=== PATIENT | female | born 1980 | race Caucasian/White ===

== ENCOUNTER 2017-02-04 00:17 | Outpatient (CLI) ==
[2017-02-03 21:46] VITALS: BMI 24.5
== END 2017-02-04 00:18 | disposition home or self-care (01) ==
LOC: AMBL 00:17
PROVIDERS: ATTEND Family Medicine
DX: N20.0 Calculus of kidney (principal)

== ENCOUNTER 2017-09-23 18:33 | Emergency (ER) ==
[2017-09-23 18:42] VITALS: BP 108/74; TEMP 98.1; BMI 25.8
--- NOTE | 2017-09-23 19:14 | CT ---
Exam: CT of the abdomen and pelvis without contrast History: Flank pain Technique: [address] of the abdomen and pelvis without intravascular contrast FINDINGS: The lung bases are clear. No significant liver abnormality. The adrenals, pancreas and spl een are unremarkable. The stomach and hiatus are unremarkable.The gallbladder appears normal. Nonobst ructing 4.3 mm calculus in the right kidney. Nonobstructing 2 mm calculus in the left kidney. No hy dronephrosis or hydroureter on either side. The appendix is not seen. Bowel loops demonstrate normal caliber. No inflamatory change seen in the mesentery or retroperitoneum. Vascular structures appear normal by noncontrast CT. Pelvic genitourinary structures appear normal. Pelvic bowel loops are unremarkable. No inflammatory c hange in the pelvic fat. No acute abnormality of the abdominal or pelvic skeleton. Impression: 1. No inflammatory process, bowel or urinary obstruction is seen. 2. Bilateral nonobstructing nephrolithiasis
--- NOTE | 2017-09-23 19:20 | ED.PDOC ---
General ED Provider: Dr. YULIANA ROSENBERG-ER Chief Complaint: Back Pain Stated Complaint: simba got stones Time Seen by Physician: 18:55 Mode of Arrival: Walk-In Information Source: Patient Exam Limitations: No limitations Primary Care Provider: YULIANA ROSENBERG Nursing and Triage Documentation Reviewed and Agree: Yes Reviewed sepsis parameters & appropriate labs ordered?: Yes System Inflammatory Response Syndrome: Not Applicable Sepsis Protocol: For patient's 13 years and over: Temp is 96.8 and below OR 101 and greater Pulse >90 BPM Resp >20/minute Acutely Altered Mental Status Are patient's symptoms suggestive of a new infection, such as: -Pneumonia -Skin, Soft Tissue -Endocarditis -UTI -Bone, Joint Infection -Implantable Device -Acute Abdominal Infection -Wound Infection -Meningitis -Blood Stream Catheter Infection -Unknown Complaint Exam - Complaint/Exam Patient Complains of: Reports: Pain Symptoms Are: Still present Timing: Constant Initial Severity: Mild Current Severity: Moderate Location of Pain: Reports: Flank Character: Reports: Dull, Cramping Aggravating: Reports: None Alleviating: Reports: None Associated Signs and Symptoms: Reports: Back pain, Hematuria Ectopic Risk Factors: Reports: Tubal ligation Differential Diagnoses: Other Review of Systems - Review Of Systems Constitutional: Reports: No symptoms Eyes: Reports: No symptoms Ears, Nose, Mouth, Throat: Reports: No symptoms Respiratory: Reports: No symptoms Cardiac: Reports: No symptoms GI: Reports: No symptoms : Reports: Flank pain, Hematuria Musculoskeletal: Reports: No symptoms Skin: Reports: No symptoms Neurological: Reports: No symptoms Endocrine: Reports: No symptoms Hematologic/Lymphatic: Reports: No symptoms All Other Systems: Reviewed and Negative Past Medical History - Past Medical History Previously Healthy: Yes Endocrine: Reports: None Cardiovascular: Reports: None Respiratory: Reports: None Hematological: Reports: None Gastrointestinal: Reports: None Genitourinary: Reports: UTI, Kidney stones Neuro/Psych: Reports: None Musculoskeletal: Reports: None Cancer: Reports: None Last Menstrual Period: na - Surgical History General Surgical History: Reports: Unknown - Family History Family History: Reports: Unknown - Social History Smoking Status: Current every day smoker Hx Substance Use: No Alcohol Screening: None - Immunizations Tetanus Shot up to Date: Yes Physical Exam - Physical Exam Appearance: Well-appearing, No pain distress, Well-nourished Pain Distress: Mild Eyes: KOBE, EOMI, Conjunctiva clear ENT: Ears normal, Nose normal, Oropharynx normal Neck: Supple Respiratory: Airway patent Cardiovascular: RRR, Pulses normal, No rub, No murmur GI/: Soft, Nontender, No masses, Bowel sounds normal, No Organomegaly Musculoskeletal: Normal strength, ROM intact, No edema, No calf tenderness Skin: Warm, Dry, Normal color Neurological: Sensation intact Psychiatric: Affect appropriate, Mood appropriate Interpretation - Radiology Interpretation Radiology Interpretation By: Radiologist Radiology Results: Positive Exam Interpreted: CT Scan Critical Care Note - Critical Care Note Total Time (mins): 0 Course - Course Orders, Labs, Meds: Lab Review 09/23/17 18:53 Urine Color Yellow Urine Clarity Clear Urine pH 7.0 Ur Specific [place] 1.020 Urine Protein Negative Urine Glucose (UA) Negative Urine Ketones Negative Urine Blood Negative Urine Nitrite Negative Urine Bilirubin Negative Urine Urobilinogen 0.2 Ur Leukocyte Esterase Negative Orders Category Date Time Status URINALYSIS C & S IF INDICATED Stat LAB 09/23/17 18:53 Completed URINE CULTURE Stat LAB 09/23/17 18:[address] ABDOMEN/PELVIS WO CONTRAST Stat RADS 09/23/17 18:38 Completed Vital Signs: Temp Pulse Resp BP Pulse Ox 09/23/17 18:34 98.1 F 98 H 16 108/74 98 Departure - Departure Time of Disposition: 19:19 Disposition: HOME SELF-CARE Discharge Problem: Flank pain Hematuria Qualifiers: Hematuria type: gross Qualified Code(s): R31.0 - Gross hematuria Instructions: Kidney Stones (ED) Condition: Good Pt referred to PMD for follow-up: Yes IPMP verified?: No Additional Instructions: percocet 5mg q 4hrs prn pain #12--cakll my office tomorrow to arrange urology referral Allergies/Adverse Reactions: Allergies No Known Allergies Allergy (Unverified 09/23/17 18:47) Home Medications: Ambulatory Orders 1 [No Reported Medications] 02/03/17 Disposition Discussed With: Patient
== END 2017-09-23 19:24 | disposition home or self-care (01) ==
LOC: ED 18:33
DX: N20.0 Calculus of kidney (principal); R31.0 Gross hematuria; Z87.442 Personal history of urinary calculi; F17.210 Nicotine dependence, cigarettes, uncomplicated
CPT/HCPCS: 81001; 87086; 87186; 99283

== ENCOUNTER 2018-09-29 10:53 | Emergency (ER) ==
[2018-09-29 10:59] VITALS: BP 111/70; TEMP 97.9; BMI 24.7
[2018-09-29] MEDS ORDERED: MORPHINE 4 MG/ML SYRINGE IM STA (11:11)
[2018-09-29] MEDS ORDERED: TORADOL IM STA (11:11)
[2018-09-29] MEDS ORDERED: ZOFRAN 4 MG/2 ML IM STA (11:11)
[2018-09-29 11:24] LABS: URINE PREGNANCY TEST NEGATIVE (NEGATIVE)
[2018-09-29] MEDS ORDERED: ZOFRAN 4 MG/2 ML ONE (11:26)
--- NOTE | 2018-09-29 12:44 | CT ---
EXAM: CT ABDOMEN AND PELVIS HISTORY: Right flank pain TECHNIQUE: CT abdomen and pelvis without intravenous contrast. Images were reconstructed using 3 mm section thickness. Reformations were prepared. COMPARISON: 09/23/2017 FINDINGS: There is bilateral nephrolithiasis with one or two punctate stones bilaterally although largest on th e right at 5 mm. No hydronephrosis is identified. There is no perinephric fat stranding. Ureters a re difficult to follow although do not appear dilated and there is no convincing evidence of intralum inal calculus. Urinary bladder is grossly unremarkable. Within limits of this unenhanced exam, the liver and spleen reveal no focal lesions. Gallbladder is grossly unremarkable. Pancreas and adrenal glands are grossly unremarkable. Normal abdominal aorta. Normal stomach. An appendix, if present is not seen. Normal bowel gas pattern. Uterus is within normal limits. There is no ascites or inflammatory infiltration of the abdominal fat. Lung bases ar e clear. No free air. No acute bony finding. IMPRESSION: Bilateral nephrolithiasis. No hydronephrosis or convincing evidence of ureteral obstruc tion. No clear etiology for the patient's right flank pain was found.
--- NOTE | 2018-09-29 13:09 | ED.PDOC ---
General ED Provider: Dr. REILLY RODRIGES Chief Complaint: Kidney Stone Stated Complaint: kidney stone Time Seen by Physician: 11:00 Mode of Arrival: Walk-In Information Source: Patient Exam Limitations: No limitations Nursing and Triage Documentation Reviewed and Agree: Yes Does patient meet sepsis criteria?: No System Inflammatory Response Syndrome: Not Applicable Sepsis Protocol: For patient's 13 years and over: Temp is 96.8 and below OR 101 and greater Pulse >90 BPM Resp >20/minute Acutely Altered Mental Status Are patient's symptoms suggestive of a new infection, such as: -Pneumonia -Skin, Soft Tissue -Endocarditis -UTI -Bone, Joint Infection -Implantable Device -Acute Abdominal Infection -Wound Infection -Meningitis -Blood Stream Catheter Infection -Unknown Review of Systems - Review Of Systems Constitutional: Reports: No symptoms Eyes: Reports: No symptoms Ears, Nose, Mouth, Throat: Reports: No symptoms Respiratory: Reports: No symptoms Cardiac: Reports: No symptoms GI: Reports: Abdominal pain : Reports: No symptoms Musculoskeletal: Reports: No symptoms Skin: Reports: No symptoms Neurological: Reports: No symptoms Endocrine: Reports: No symptoms Hematologic/Lymphatic: Reports: No symptoms All Other Systems: Reviewed and Negative Past Medical History - Past Medical History Previously Healthy: Yes Endocrine: Reports: None Cardiovascular: Reports: None Respiratory: Reports: None Hematological: Reports: None Gastrointestinal: Reports: None Genitourinary: Reports: UTI, Kidney stones Neuro/Psych: Reports: None Musculoskeletal: Reports: None Cancer: Reports: None Last Menstrual Period: 11 of September - Surgical History General Surgical History: Reports: Unknown - Family History Family History: Reports: Unknown - Social History Smoking Status: Current every day smoker Hx Substance Use: No Alcohol Screening: None Physical Exam - Physical Exam Appearance: Well-appearing, No pain distress, Well-nourished Eyes: KOBE, EOMI, Conjunctiva clear ENT: Ears normal, Nose normal, Oropharynx normal Respiratory: Airway patent, Breath sounds clear, Breath sounds equal, Respirations nonlabored Cardiovascular: RRR, Pulses normal, No rub, No murmur GI/: Soft, Nontender, No masses, Bowel sounds normal, No Organomegaly Musculoskeletal: Normal strength, ROM intact, No edema, No calf tenderness Skin: Warm, Dry, Normal color Neurological: Sensation intact, Motor intact, Reflexes intact, Cranial nerves intact, Alert, Oriented Psychiatric: Affect appropriate, Mood appropriate Critical Care Note - Critical Care Note Total Time (mins): 0 Course - Course Hematology/Chemistry: 09/29/18 11:15 09/29/18 11:15 Orders, Labs, Meds: Lab Review 09/29/18 09/29/18 09/29/18 11:10 11:10 11:15 WBC 8.16 RBC 4.49 Hgb 13.0 Hct 39.2 MCV 87.3 MCH 29.0 MCHC 33.2 RDW Coeff of Bill 13.7 Plt Count 278 Immature Gran % (Auto) 0.2 Neut % (Auto) 62.1 Lymph % (Auto) 26.2 [place] % (Auto) 7.0 Eos % (Auto) 3.6 Baso % (Auto) 0.9 Immature Gran # (Auto) 0.0 Neut # (Auto) 5.1 Lymph # (Auto) 2.1 [place] # (Auto) 0.6 Eos # (Auto) 0.3 Baso # (Auto) 0.1 Sodium Potassium Chloride Carbon Dioxide Anion Gap BUN Creatinine Estimated GFR (MDRD) BUN/Creatinine Ratio Glucose Calcium Total Bilirubin AST ALT Alkaline Phosphatase Total Protein Albumin Globulin Albumin/Globulin Ratio Urine Color Yellow Urine Clarity Clear Urine pH 7.0 Ur Specific [place] 1.010 Urine Protein Negative Urine Glucose (UA) Negative Urine Ketones Negative Urine Blood Trace-intact Urine Nitrite Negative Urine Bilirubin Negative Urine Urobilinogen 0.2 Ur Leukocyte Esterase Trace Urine Microscopic RBC 2-5 Urine Microscopic WBC 0-2 Ur Squamous Epith Cells Not present Urine Test Negative 09/29/18 11:15 WBC RBC Hgb Hct MCV MCH MCHC RDW Coeff of Bill Plt Count Immature Gran % (Auto) Neut % (Auto) Lymph % (Auto) [place] % (Auto) Eos % (Auto) Baso % (Auto) Immature Gran # (Auto) Neut # (Auto) Lymph # (Auto) [place] # (Auto) Eos # (Auto) Baso # (Auto) Sodium 140.2 Potassium 4.32 Chloride 105.1 Carbon Dioxide 26.4 Anion Gap 13.02 BUN 12.5 Creatinine 0.64 Estimated GFR (MDRD) 104.00 BUN/Creatinine Ratio 19.53 Glucose 95.6 Calcium 9.23 Total Bilirubin 0.24 AST 28.2 ALT 22.7 Alkaline Phosphatase 49.5 Total Protein 7.06 Albumin 4.25 Globulin 2.81 Albumin/Globulin Ratio 1.51 Urine Color Urine Clarity Urine pH Ur Specific [place] Urine Protein Urine Glucose (UA) Urine Ketones Urine Blood Urine Nitrite Urine Bilirubin Urine Urobilinogen Ur Leukocyte Esterase Urine Microscopic RBC Urine Microscopic WBC Ur Squamous Epith Cells Urine Test Orders Category Date Time Status CBC W/ AUTO DIFF Stat LAB 09/29/18 11:15 Completed COMPREHENSIVE METABOLIC PANEL Stat LAB 09/29/18 11:15 Completed URINALYSIS C & S IF INDICATED Stat LAB 09/29/18 11:10 Completed URINE Stat LAB 09/29/18 11:10 Completed Ketorolac Tromethamine [Toradol] MEDS 09/29/18 11:11 Discontinued 30 mg IM ONCE STA Morphine Sulfate [Morphine 4 mg/ml Syringe] MEDS 09/29/18 11:11 Discontinued 4 mg IM ONCE STA Ondansetron HCl/Pf [Zofran 4 mg/2 ml] MEDS 09/29/18 11:26 Discontinued 4 mg .ROUTE .STK-MED ONE Ondansetron HCl/Pf [Zofran 4 mg/2 ml] MEDS 09/29/18 11:11 Discontinued 4 mg IM ONCE STA CT ABD/PEL WO RENAL STONE PROT Stat RADS 09/29/18 11:11 Completed Medications Discontinued Medications Generic Name Dose Route Start Last Admin Trade Name Freq PRN Reason Stop Dose Admin Ketorolac Tromethamine 30 mg 09/29/18 11:11 09/29/18 11:28 Toradol IM 09/29/18 11:12 30 mg ONCE STA Administration Morphine Sulfate 4 mg 09/29/18 11:11 09/29/18 11:28 Morphine 4 Mg/Ml Syringe IM 09/29/18 11:12 4 mg ONCE STA Administration Ondansetron HCl 4 mg 09/29/18 11:11 09/29/18 11:29 Zofran 4 Mg/2 Ml IM 09/29/18 11:12 4 mg ONCE STA Administration Vital Signs: Temp Pulse Resp BP Pulse Ox 09/29/18 10:55 97.9 F 100 H 16 111/70 99 Departure - Departure Time of Disposition: 13:08 Disposition: HOME SELF-CARE Discharge Problem: Kidney stone Instructions: Renal Colic (ED) Condition: Good Pt referred to PMD for follow-up: Yes IPMP verified?: No Additional Instructions: Please call your Family Physician as soon as possible to schedule a follow-up appointment. Allergies/Adverse Reactions: Allergies No Known Allergies Allergy (Unverified 09/29/18 11:01) Home Medications: Ambulatory Orders 1 [No Reported Medications] 02/03/17 Disposition Discussed With: Patient
== END 2018-09-29 13:21 | disposition home or self-care (01) ==
LOC: ED 10:53
DX: N20.0 Calculus of kidney (principal); Z87.442 Personal history of urinary calculi; Z87.440 Personal history of urinary (tract) infections; F17.210 Nicotine dependence, cigarettes, uncomplicated
CPT/HCPCS: 36415; 80053; 81001; 81025; 85025; 96372; 99283

== ENCOUNTER 2018-12-06 09:34 | Inpatient (IN) ==
[2018-12-06] MEDS ORDERED: TYLENOL PO STA (10:04)
[2018-12-06 10:19] LABS: URINE PREGNANCY TEST NEGATIVE (NEGATIVE)
--- NOTE | 2018-12-06 11:17 | CT ---
EXAM: CT Abdomen Pelvis Without IV contrast HISTORY: Pain COMPARISON: 11/06/2018 TECHNIQUE: CT Abdomen Pelvis performed Without intravenous contrast. Coronal and sagital images obta ined. FINDINGS: Minimal passive atelectasis in the dependent lung bases. Normal heart size. Similar right inferior pole 2 x 3 mm nonobstructive calculus and nonobstructive left inferior pole 2 mL calculus. No other urolithiasis. No hydronephrosis or perinephric fat stranding. The The liver, gallbladder, pancreas, spleen, and adrenals are unremarkable. No bowel obstruction or abnormal bowel wall thickening. Metallic surgical clips in the presacral sof t tissues, previously in the right paramedian pelvis. No evidence of appendicitis. The tip is not w ell visualized. No adenopathy. Uterus and adnexa are within normal limits. Trace hypodense physiolog ic free fluid within the pelvis. Normal diameter aorta. No abnormal fluid collection, free fluid or free air. No acute osseous abnor mality. IMPRESSION: 1. Similar nonobstructive bilateral renal calculi. No acute intra-abdominal findings. 2. Surgical clips in the presacral soft tissues, previous in the left paramedian abdomen. Recommend correlation with surgical history. 3. Moderate retained colon stool volume.
--- NOTE | 2018-12-06 11:30 | ED.PDOC ---
General ED Provider: Dr. REILLY RODRIGES Chief Complaint: Urinary Problem Stated Complaint: DYSURIA Time Seen by Physician: 09:40 Mode of Arrival: Walk-In Information Source: Patient Exam Limitations: No limitations Primary Care Provider: ARTI MAGALLON Nursing and Triage Documentation Reviewed and Agree: Yes Does patient meet sepsis criteria?: No If yes, has appropriate treatment been initiated?: No System Inflammatory Response Syndrome: Not Applicable Sepsis Protocol: For patient's 13 years and over: Temp is 96.8 and below OR 101 and greater Pulse >90 BPM Resp >20/minute Acutely Altered Mental Status Are patient's symptoms suggestive of a new infection, such as: -Pneumonia -Skin, Soft Tissue -Endocarditis -UTI -Bone, Joint Infection -Implantable Device -Acute Abdominal Infection -Wound Infection -Meningitis -Blood Stream Catheter Infection -Unknown Complaint Exam - UTI Female Complaint/Exam Patient Complains of: Reports: Painful urination Onset/Duration: 2 DAYS Symptoms Are: Still present Timing: Intermittent Initial Severity: Mild Current Severity: Mild Location of Pain: Reports: Suprapubic Associated Signs and Symptoms: Reports: Fever, Chills. Denies: Flank pain, Dyspareunia, Vaginal discharge Patient Rh Status: Unknown Related History: Reports: Similar episode Related Surgical History: Reports: None CVA Tenderness: No Suprapubic Tenderness: No Differential Diagnoses: Pyelonephritis, Other (UTI ( RECURRENT UTI AND NEED FOR UROLOGY EVALUATION DISCUSSED ) Review of Systems - Review Of Systems Constitutional: Reports: Chills, Fever, Malaise, Weakness, Loss of appetite Eyes: Reports: No symptoms Ears, Nose, Mouth, Throat: Reports: No symptoms Respiratory: Reports: No symptoms Cardiac: Reports: No symptoms GI: Reports: No symptoms : Reports: Dysuria, Frequency Musculoskeletal: Reports: No symptoms Skin: Reports: No symptoms Neurological: Reports: No symptoms Endocrine: Reports: No symptoms Hematologic/Lymphatic: Reports: No symptoms All Other Systems: Reviewed and Negative Past Medical History - Past Medical History Previously Healthy: Yes Endocrine: Reports: None Cardiovascular: Reports: None Respiratory: Reports: None Hematological: Reports: None Gastrointestinal: Reports: None Genitourinary: Reports: UTI, Kidney stones Neuro/Psych: Reports: None Musculoskeletal: Reports: None Cancer: Reports: None Last Menstrual Period: N/A - Surgical History General Surgical History: Reports: Unknown - Family History Family History: Reports: Unknown - Social History Smoking Status: Current every day smoker, Heavy tobacco smoker Hx Substance Use: No Alcohol Screening: None - Immunizations Tetanus Shot up to Date: Yes Physical Exam - Physical Exam Appearance: Ill-appearing Ill-appearing: Mild Pain Distress: Mild Eyes: KOBE, EOMI, Conjunctiva clear ENT: Ears normal, Nose normal, Oropharynx normal Respiratory: Airway patent, Breath sounds clear, Breath sounds equal, Respirations nonlabored Cardiovascular: RRR, Pulses normal, No rub, No murmur GI/: Soft, Nontender, No masses, Bowel sounds normal, No Organomegaly Musculoskeletal: Normal strength, ROM intact, No edema, No calf tenderness Skin: Warm, Dry, Normal color Neurological: Sensation intact, Motor intact, Reflexes intact, Cranial nerves intact, Alert, Oriented Psychiatric: Affect appropriate, Mood appropriate Interpretation - Radiology Interpretation Radiology Interpretation By: Radiologist Radiology Results: Positive (NONE OBSTRUCTING STONES) Physician Notification - Case Discussed Physician Notified: PENALOZA Time of Notification: 11:33 (ADMITT START OUT ON DUAL ANTIBIOTICS AZACTAM AND ONE MORE ) Admit/Transition Orders Entered by ED Provider: Yes Admit To: Inpatient Critical Care Note - Critical Care Note Total Time (mins): 0 Course - Course Hematology/Chemistry: 12/06/18 09:58 12/06/18 09:58 Orders, Labs, Meds: Lab Review 12/06/18 12/06/18 12/06/18 09:58 09:58 10:06 WBC 14.40 H RBC 4.22 Hgb 12.2 Hct 37.4 MCV 88.6 MCH 28.9 MCHC 32.6 RDW Coeff of Bill 14.5 Plt Count 209 Immature Gran % (Auto) 0.3 Neut % (Auto) 80.0 Lymph % (Auto) 8.2 L [place] % (Auto) 9.7 Eos % (Auto) 1.5 Baso % (Auto) 0.3 Immature Gran # (Auto) 0.0 Neut # (Auto) 11.5 H Lymph # (Auto) 1.2 [place] # (Auto) 1.4 Eos # (Auto) 0.2 Baso # (Auto) 0.1 Sodium 135.6 Potassium 3.91 Chloride 101.8 Carbon Dioxide 29.1 Anion Gap 8.61 BUN 8.7 Creatinine 0.56 L Estimated GFR (MDRD) 121.00 BUN/Creatinine Ratio 15.53 Glucose 114.4 H Calcium 8.66 Total Bilirubin 0.32 AST 34.3 ALT 25.4 Alkaline Phosphatase 54.5 Total Protein 6.82 Albumin 3.88 Globulin 2.94 Albumin/Globulin Ratio 1.31 Urine Color Yellow Urine Clarity Slightly Urine pH 7.0 Ur Specific [place] 1.020 Urine Protein 1+ Urine Glucose (UA) Negative Urine Ketones Negative Urine Blood 1+ Urine Nitrite Positive Urine Bilirubin Negative Urine Urobilinogen 0.2 Ur Leukocyte Esterase 2+ Urine Microscopic RBC 2-5 Urine Microscopic WBC 30-50 Ur Squamous Epith Cells Not present Urine Bacteria 1+ Urine Test 12/06/18 10:06 WBC RBC Hgb Hct MCV MCH MCHC RDW Coeff of Bill Plt Count Immature Gran % (Auto) Neut % (Auto) Lymph % (Auto) [place] % (Auto) Eos % (Auto) Baso % (Auto) Immature Gran # (Auto) Neut # (Auto) Lymph # (Auto) [place] # (Auto) Eos # (Auto) Baso # (Auto) Sodium Potassium Chloride Carbon Dioxide Anion Gap BUN Creatinine Estimated GFR (MDRD) BUN/Creatinine Ratio Glucose Calcium Total Bilirubin AST ALT Alkaline Phosphatase Total Protein Albumin Globulin Albumin/Globulin Ratio Urine Color Urine Clarity Urine pH Ur Specific [place] Urine Protein Urine Glucose (UA) Urine Ketones Urine Blood Urine Nitrite Urine Bilirubin Urine Urobilinogen Ur Leukocyte Esterase Urine Microscopic RBC Urine Microscopic WBC Ur Squamous Epith Cells Urine Bacteria Urine Test Negative Orders Category Date Time Status CBC W/ AUTO DIFF Stat LAB 12/06/18 09:58 Completed COMPREHENSIVE METABOLIC PANEL Stat LAB 12/06/18 09:58 Completed MISCELLANEOUS SEND OUT Routine LAB 12/06/18 10:06 Stop Req URINALYSIS C & S IF INDICATED Stat LAB 12/06/18 10:06 Completed URINE CULTURE Stat LAB 12/06/18 10:06 Received URINE Stat LAB 12/06/18 10:06 Completed Acetaminophen [Tylenol] MEDS 12/06/18 10:04 Discontinued 650 mg PO ONCE STA CT ABD/PEL WO RENAL STONE PROT Stat RADS 12/06/18 10:33 Completed Medications Discontinued Medications Generic Name Dose Route Start Last Admin Trade Name Freq PRN Reason Stop Dose Admin Acetaminophen 650 mg 12/06/18 10:04 12/06/18 10:12 Tylenol PO 12/06/18 10:05 650 mg ONCE STA Administration Vital Signs: Temp Pulse Resp BP Pulse Ox 12/06/18 09:34 100.6 F H 104 H 18 118/67 97 Departure - Departure Time of Disposition: 11:33 Disposition: ADMITTED INPATIENT Discharge Problem: Urinary tract infectious disease, Urinary symptoms Condition: Good Pt referred to PMD for follow-up: Yes IPMP verified?: No Allergies/Adverse Reactions: Allergies No Known Allergies Allergy (Verified 12/06/18 09:46) Home Medications: Ambulatory Orders Buprenorphine HCl/Naloxone HCl [Suboxone 8 mg-2 mg Sl Film] 1 film SL DAILY 06/22 Disposition Discussed With: Patient
[2018-12-06] MEDS ORDERED: TYLENOL PO PRN (11:35)
[2018-12-06] MEDS ORDERED: ROCEPHIN 1 GM/50 ML D5W 50 ML IV ONE (11:57)
[2018-12-06] MEDS ORDERED: AZACTAM 1 GM in SODIUM CHLORIDE 100 ML IV SCH (12:00)
[2018-12-06] MEDS ORDERED: SODIUM CHLORIDE IV SCH (12:00)
[2018-12-06] MEDS: ROCEPHIN 1 GM/50 ML D5W 1 GM in PREMIX 50 ML D5W 1 BAG IV SCH (12:03)
[2018-12-06] MEDS ORDERED: SODIUM CHLORIDE 1,000 ML IV ONE (12:10)
[2018-12-06] MEDS ORDERED: TORADOL ONE (12:23)
[2018-12-06] MEDS: TORADOL IVP PRN ×2 (12:26→20:50)
[2018-12-06 12:48] VITALS: BMI 25.7
[2018-12-06] MEDS ORDERED: AZACTAM ONE ×2 (12:56→20:28)
[2018-12-06] MEDS: AZACTAM 1 GM in SODIUM CHLORIDE 50 ML IV SCH ×2 (12:59→20:48)
[2018-12-07] MEDS: SODIUM CHLORIDE 1,000 ML IV SCH ×2 (02:07→14:51)
[2018-12-07] MEDS: TORADOL IVP PRN ×3 (05:58→22:15)
[2018-12-07] MEDS ORDERED: TYLENOL PO PRN (08:05)
--- NOTE | 2018-12-07 08:19 | PCM.PROG ---
Attending Provider: [facility] patient is seen with Rosa Maria De Anda, Nurse Practitioner. DATE OF SERVICE: 12/07/18 SUBJECTIVE: This 38 year old WHITE/ F was hospitalized 12/06/18. The patient is running low grade fever this morning. She states that she is feeling nauseous. She has been out multiple times during the night to smoke. She is also complaining of flank pain. REVIEW OF SYSTEMS: CONSTITUTIONAL: No night sweats. Fatigue, No lethargy. Fever. HEENT: Eyes: No visual changes. No eye pain. No eye discharge. ENT: No runny nose. No epistaxis. No sinus pain. No odynophagia. No congestion. RESPIRATORY: No cough, no congestion. No hemoptysis. No shortness of breath. CARDIOVASCULAR: No angina symptoms. No CHF symptoms. No atypical chest pain for CAD. No palpitations. No orthopnea.. GASTROINTESTINAL: Flank pain. Nausea. No diarrhea or constipation. No hematemesis. No hematochezia. GENITOURINARY: No urgency. No frequency. No dysuria. No hematuria. No obstructive symptoms. No discharge. No pain. No significant abnormal bleeding. MUSCULOSKELETAL: No musculoskeletal pain; no joint swelling. NEUROLOGICAL: Awake, alert, oriented to time, place and person. No headache. No neck pain. No syncope. No seizures. No dizziness. PSYCHIATRIC: Not anxious. No depression. No suicidal thoughts. No homicidal thoughts. SKIN: No rash. No lesions. No wounds. ENDOCRINE: No unexplained weight loss. No weight gain. HEMATOLOGIC/LYMPHATIC: No anemia. No purpura. No petechiae. No prolonged or excessive bleeding. No palpable lymph nodes. PHYSICAL EXAMINATION: GENERAL: The patient is awake, alert and oriented, lying in bed in no distress. VITAL SIGNS: Temperature 99.2 F, Pulse 100, Respiratory Rate 16, BP 102/71, Pulse Ox 99% HEENT: Head normocephalic, atraumatic. Eyes: Extraocular muscles are intact. Pupils are equal, round and reactive to light and accommodation. Ears: No lesions. Nose appeared normal. Throat: No exudate or erythema. NECK: Supple. No JVD, no carotid bruit. No lymphadenopathy or thyromegaly. LUNGS: Diminished breath sounds. Clear to auscultation. Percussion note normal. Chest symmetrical. HEART: S1, S2, no S3. No murmurs. No cyanosis or clubbing. No ascites. Pulses: Dorsalis pedis and posterior tibial pulses +1 to +2 both sides. ABDOMEN: Soft. Non-tender. Bowel sounds active. No CVA tenderness. No mass felt. EXTREMITIES: No edema. Full range of motion of all extremities, equal. NEUROLOGIC: No focal deficit. Cranial nerves II through XII are grossly intact. No headache, no double vision or headache. SKIN: Not dry. Intact. Turgor-normal. LYMPHATIC: No palpable lymph nodes/no lymphedema. MUSCULOSKELETAL: Normal joints with no swelling. Muscle tone is normal. LAB REVIEW: 12/07/18 05:21 12/07/18 05:21 12/07/18 05:21: Sodium 135.7, Potassium 4.06, Chloride 105.5, Carbon Dioxide 26.7, Anion Gap 7.56, BUN 9.3, Creatinine 0.61, Estimated GFR (MDRD) 110.00, BUN /Creatinine Ratio 15.24, Glucose 150.7 H, Calcium 8.40, Total Bilirubin 0.88, AST 38.3 H, ALT 43.6 H, Alkaline Phosphatase 74.4, Total Protein 6.38, Albumin 3.52, Globulin 2.86, Albumin/Globulin Ratio 1.23 12/07/18 05:21: WBC 30.02 H D, RBC 3.90 L, Hgb 11.4 L, Hct 34.6 L, MCV 88.7, MCH 29.2, MCHC 32.9, RDW Coeff of Bill 14.6, Plt Count 190, Neutrophils % (Manual ) 88.0 H, Lymphocytes % (Manual) 4.0 L, Monocytes % (Manual) 7.0, Eosinophils % (Manual) 1.0, Anisocytosis Not present 12/06/18 12:00: Lactic Acid 0.79 12/06/18 11:37: Procalcitonin < 0.05 12/06/18 10:06: Urine Test Negative 12/06/18 10:06: Urine Color Yellow, Urine Clarity Slightly, Urine pH 7.0, Ur Specific [place] 1.020, Urine Protein 1+, Urine Glucose (UA) Negative, Urine Ketones Negative, Urine Blood 1+, Urine Nitrite Positive, Urine Bilirubin Negative, Urine Urobilinogen 0.2, Ur Leukocyte Esterase 2+, Urine Microscopic RBC 2-5, Urine Microscopic WBC 30-50, Ur Squamous Epith Cells Not present, Urine Bacteria 1+ 12/06/18 09:58: Sodium 135.6, Potassium 3.91, Chloride 101.8, Carbon Dioxide 29.1, Anion Gap 8.61, BUN 8.7, Creatinine 0.56 L, Estimated GFR (MDRD) 121.00, BUN/Creatinine Ratio 15.53, Glucose 114.4 H, Calcium 8.66, Total Bilirubin 0.32 , AST 34.3, ALT 25.4, Alkaline Phosphatase 54.5, Total Protein 6.82, Albumin 3.88, Globulin 2.94, Albumin/Globulin Ratio 1.31 12/06/18 09:58: WBC 14.40 H, RBC 4.22, Hgb 12.2, Hct 37.4, MCV 88.6, MCH 28.9, MCHC 32.6, RDW Coeff of Bill 14.5, Plt Count 209, Immature Gran % (Auto) 0.3, Neut % (Auto) 80.0, Lymph % (Auto) 8.2 L, [place] % (Auto) 9.7, Eos % (Auto) 1.5, Baso % (Auto) 0.3, Immature Gran # (Auto) 0.0, Neut # (Auto) 11.5 H, Lymph # ( Auto) 1.2, [place] # (Auto) 1.4, Eos # (Auto) 0.2, Baso # (Auto) 0.1 ASSESSMENT: Please see below. 1. Acute UTI 2. Acute dehydration 3. Smoker 4. History of drug abuse PLAN: 1. Zofran 4mg IV Q 6 hours PRN 2. Nicotine Patch Plan and coordination of the patient's care discussed in the presence of Russian History Professor and nurse. SCRIBED BY: TESS DYE, Supervisor [employer] scribed while in presence of service performed by Dr. Penaloza/Rosa Maria De Anda APRN on 12/07/18 ([id number])
[2018-12-07] MEDS: ZOFRAN 4 MG/2 ML IVP PRN ×2 (08:23→15:05)
[2018-12-07] MEDS: ROCEPHIN 1 GM/50 ML D5W 1 GM in PREMIX 50 ML D5W 1 BAG IV SCH (08:30)
[2018-12-07] MEDS ORDERED: NICODERM 21 MG TD SCH (09:00)
[2018-12-07] MEDS: AZACTAM 1 GM in SODIUM CHLORIDE 50 ML IV SCH ×2 (09:24→20:03)
[2018-12-07] MEDS: BUPRENORPHINE HCL SL SCH (09:29)
[2018-12-07] MEDS: [UNRECOGNIZED DRUG - OTHER] SL SCH (09:29)
[2018-12-07] MEDS: NALOXONE HCL SL SCH (09:29)
[2018-12-07] MEDS: COLACE PO SCH ×2 (09:34→20:03)
[2018-12-07] MEDS ORDERED: PHENERGAN TAB PO PRN (15:07)
[2018-12-07] MEDS: PROTONIX PO SCH ×2 (15:20→20:03)
[2018-12-07] MEDS: FIORICET PO PRN (15:21)
[2018-12-08] MEDS: SODIUM CHLORIDE 1,000 ML IV SCH ×2 (01:02→08:37)
[2018-12-08] MEDS: FIORICET PO PRN ×3 (01:04→17:32)
[2018-12-08] MEDS: PROTONIX PO SCH ×2 (05:34→16:26)
[2018-12-08] MEDS: TORADOL IVP PRN ×2 (07:35→20:03)
--- NOTE | 2018-12-08 08:29 | PCM.PROG ---
Attending Provider: ATTENDING PROVIDER: [facility] patient is seen with Rosa Maria De Anda, Nurse Practitioner. DATE OF SERVICE: 12/08/18 SUBJECTIVE: This 38 year old WHITE/ F was hospitalized 12/06/18. The patient is resting comfortably. She has been afebrile since yesterday morning. She did have some vomiting yesterday. Her headache has improved and nausea improved this morning. Urine drug screen was positive for amphetamines which she does not have a prescription for. REVIEW OF SYSTEMS: CONSTITUTIONAL: No night sweats. Fatigue. No fever or chills. HEENT: Eyes: No visual changes. No eye pain. No eye discharge. ENT: No runny nose. No epistaxis. No sinus pain. No odynophagia. No congestion. RESPIRATORY: No cough, no congestion. No hemoptysis. No shortness of breath. CARDIOVASCULAR: No angina symptoms. No CHF symptoms. No atypical chest pain for CAD. No palpitations. No orthopnea.. GASTROINTESTINAL: No abdominal pain. nausea. No diarrhea or constipation. No hematemesis. No hematochezia. GENITOURINARY: No urgency. No frequency. No dysuria. No hematuria. No obstructive symptoms. No discharge. No pain. No significant abnormal bleeding. MUSCULOSKELETAL: No musculoskeletal pain; no joint swelling. NEUROLOGICAL: Awake, alert, oriented to time, place and person. No headache. No neck pain. No syncope. No seizures. No dizziness. Headache. PSYCHIATRIC: Not anxious. No depression. No suicidal thoughts. No homicidal thoughts. SKIN: No rash. No lesions. No wounds. ENDOCRINE: No unexplained weight loss. No weight gain. HEMATOLOGIC/LYMPHATIC: No anemia. No purpura. No petechiae. No prolonged or excessive bleeding. No palpable lymph nodes. PHYSICAL EXAMINATION: GENERAL: The patient is awake, alert and oriented, lying in bed in no distress. VITAL SIGNS: Temperature 98.5 F, Pulse 70, Respiratory Rate 18, BP 92/64, Pulse Ox 100% HEENT: Head normocephalic, atraumatic. Eyes: Extraocular muscles are intact. Pupils are equal, round and reactive to light and accommodation. Ears: No lesions. Nose appeared normal. Throat: No exudate or erythema. NECK: Supple. No JVD, no carotid bruit. No lymphadenopathy or thyromegaly. LUNGS: Diminished breath sounds. Clear to auscultation. Percussion note normal. Chest symmetrical. HEART: S1, S2, no S3. No murmurs. No cyanosis or clubbing. No ascites. Pulses: Dorsalis pedis and posterior tibial pulses +1 to +2 both sides. ABDOMEN: Soft. Non-tender. Bowel sounds active. No CVA tenderness. No mass felt. EXTREMITIES: No edema. Full range of motion of all extremities, equal. NEUROLOGIC: No focal deficit. Cranial nerves II through XII are grossly intact. No headache, no double vision or headache. SKIN: Not dry. Intact. Turgor-normal. LYMPHATIC: No palpable lymph nodes/no lymphedema. MUSCULOSKELETAL: Normal joints with no swelling. Muscle tone is normal. LAB REVIEW: 12/08/18 05:05 12/08/18 05:05 12/08/18 05:05: Sodium 137.0, Potassium 3.54, Chloride 109.1 H, Carbon Dioxide 26.0, Anion Gap 5.44, BUN 11.0, Creatinine 0.66, Estimated GFR (MDRD) 100.00, BUN/Creatinine Ratio 16.66, Glucose 149.6 H, Calcium 8.33 L, Total Bilirubin 0.28, AST 23.4, ALT 28.3, Alkaline Phosphatase 72.0, Total Protein 5.76 L, Albumin 3.00 L, Globulin 2.76, Albumin/Globulin Ratio 1.08 12/08/18 05:05: WBC 21.59 H D, RBC 3.47 L, Hgb 10.0 L, Hct 31.0 L, MCV 89.3, MCH 28.8, MCHC 32.3, RDW Coeff of Bill 14.8, Plt Count 158, Immature Gran % (Auto ) 0.7, Neut % (Auto) 76.8, Lymph % (Auto) 11.7, [place] % (Auto) 8.6, Eos % (Auto) 1.9, Baso % (Auto) 0.3, Immature Gran # (Auto) 0.2, Neut # (Auto) 16.6 H, Lymph # (Auto) 2.5, [place] # (Auto) 1.9, Eos # (Auto) 0.4, Baso # (Auto) 0.1 12/07/18 08:35: Urine Opiates Screen Negative, Ur Oxycodone Screen Negative, Urine Methadone Screen Negative, Ur Propoxyphene Screen Negative, Ur Barbiturates Screen Negative, U Tricyclic Antidepress Negative, Ur Phencyclidine Scrn Negative, Ur Amphetamine Screen Positive, U Methamphetamines Scrn Negative, U Benzodiazepines Scrn Negative, Urine Cocaine Screen Negative, U Cannabinoids Screen Negative ASSESSMENT: Please see below. 1. Acute UTI 2. Acute dehydration 3. Smoker 4. History of drug abuse PLAN: 1. Discontinue IV fluids 2. Continue IV antibiotics 3. Possible discharge home or Thursday Plan and coordination of the patient's care discussed in the presence of Hand Binder Cutter and nurse. SCRIBED BY: Gorge CREWSist scribed while in presence of service performed by Dr. Penaloza/Rosa Maria De Anda APRN on 12/08/18 ([id number])
[2018-12-08] MEDS ORDERED: DULCOLAX RC STA (08:34)
[2018-12-08] MEDS: COLACE PO SCH ×2 (08:47→20:04)
[2018-12-08] MEDS: NALOXONE HCL SL SCH (08:48)
[2018-12-08] MEDS: BUPRENORPHINE HCL SL SCH (08:48)
[2018-12-08] MEDS: [UNRECOGNIZED DRUG - OTHER] SL SCH (08:48)
[2018-12-08] MEDS: AZACTAM 1 GM in SODIUM CHLORIDE 50 ML IV SCH ×2 (08:49→20:04)
[2018-12-08] MEDS: ROCEPHIN 1 GM/50 ML D5W 1 GM in PREMIX 50 ML D5W 1 BAG IV SCH (09:59)
[2018-12-08] MEDS ORDERED: MILK OF MAGNESIA PO STA (14:52)
[2018-12-09] MEDS: MILK OF MAGNESIA PO PRN ×2 (05:43→15:25)
[2018-12-09] MEDS: PROTONIX PO SCH (05:43)
[2018-12-09] MEDS: [UNRECOGNIZED DRUG - OTHER] SL SCH (08:30)
[2018-12-09] MEDS: BUPRENORPHINE HCL SL SCH (08:30)
[2018-12-09] MEDS: NALOXONE HCL SL SCH (08:30)
[2018-12-09] MEDS: COLACE PO SCH ×2 (08:33→21:20)
[2018-12-09] MEDS: AZACTAM 1 GM in SODIUM CHLORIDE 50 ML IV SCH ×2 (08:35→21:20)
[2018-12-09] MEDS: ROCEPHIN 1 GM/50 ML D5W 1 GM in PREMIX 50 ML D5W 1 BAG IV SCH (09:54)
--- NOTE | 2018-12-09 09:59 | PCM.PROG ---
Attending Provider: [facility] patient is seen with Rosa Maria De Anda, Nurse Practitioner. DATE OF SERVICE: 12/09/18 SUBJECTIVE: This 38 year old WHITE/ F was hospitalized 12/06/18. The patient is resting comfortably. She is still going outside every 30minutes to hour to smoke. She has been advised this is a nonsmoking facility. The patient ran a low grade temperature early this morning, unsure if this is related to her smoking outside of due to infection. She has clinically improved. WBC is down and no nausea. REVIEW OF SYSTEMS: CONSTITUTIONAL: No night sweats. No fatigue, malaise, lethargy. No fever or chills. HEENT: Eyes: No visual changes. No eye pain. No eye discharge. ENT: No runny nose. No epistaxis. No sinus pain. No odynophagia. No congestion. RESPIRATORY: No cough, no congestion. No hemoptysis. No shortness of breath. CARDIOVASCULAR: No angina symptoms. No CHF symptoms. No atypical chest pain for CAD. No palpitations. No orthopnea.. GASTROINTESTINAL: No abdominal pain. No nausea or vomiting. No diarrhea or constipation. No hematemesis. No hematochezia. GENITOURINARY: No urgency. No frequency.Dysuria. No hematuria. No obstructive symptoms. No discharge. No pain. No significant abnormal bleeding. MUSCULOSKELETAL: No musculoskeletal pain; no joint swelling. NEUROLOGICAL: Awake, alert, oriented to time, place and person. No headache. No neck pain. No syncope. No seizures. No dizziness. PSYCHIATRIC: Anxious. No depression. No suicidal thoughts. No homicidal thoughts. SKIN: No rash. No lesions. No wounds. ENDOCRINE: No unexplained weight loss. No weight gain. HEMATOLOGIC/LYMPHATIC: No anemia. No purpura. No petechiae. No prolonged or excessive bleeding. No palpable lymph nodes. PHYSICAL EXAMINATION: GENERAL: The patient is awake, alert and oriented, lying in bed in no distress. VITAL SIGNS: Temperature 99.4 F, Pulse 86, Respiratory Rate 18, BP 99/66, Pulse Ox 98% HEENT: Head normocephalic, atraumatic. Eyes: Extraocular muscles are intact. Pupils are equal, round and reactive to light and accommodation. Ears: No lesions. Nose appeared normal. Throat: No exudate or erythema. NECK: Supple. No JVD, no carotid bruit. No lymphadenopathy or thyromegaly. LUNGS: Diminished breath sounds. Clear to auscultation. Percussion note normal. Chest symmetrical. HEART: S1, S2, no S3. No murmurs. No cyanosis or clubbing. No ascites. Pulses: Dorsalis pedis and posterior tibial pulses +1 to +2 both sides. ABDOMEN: Soft. Non-tender. Bowel sounds active. No CVA tenderness. No mass felt. EXTREMITIES: No edema. Full range of motion of all extremities, equal. NEUROLOGIC: No focal deficit. Cranial nerves II through XII are grossly intact. No headache, no double vision or headache. SKIN: Not dry. Intact. Turgor-normal. LYMPHATIC: No palpable lymph nodes/no lymphedema. MUSCULOSKELETAL: Normal joints with no swelling. Muscle tone is normal. LAB REVIEW: 12/09/18 05:22 12/09/18 05:22 12/09/18 05:22: Sodium 137.7, Potassium 3.45 L, Chloride 106.8, Carbon Dioxide 26.3, Anion Gap 8.05, BUN 10.2, Creatinine 0.68, Estimated GFR (MDRD) 97.00, BUN /Creatinine Ratio 15.00, Glucose 143.6 H, Calcium 8.58, Total Bilirubin 0.26, AST 23.1, ALT 25.1, Alkaline Phosphatase 89.7, Total Protein 6.37, Albumin 3.43 L, Globulin 2.94, Albumin/Globulin Ratio 1.16 12/09/18 05:22: WBC 10.80 H D, RBC 3.56 L, Hgb 10.3 L, Hct 31.6 L, MCV 88.8, MCH 28.9, MCHC 32.6, RDW Coeff of Bill 14.7, Plt Count 197, Immature Gran % (Auto ) 0.3, Neut % (Auto) 68.3, Lymph % (Auto) 19.7, [place] % (Auto) 8.1, Eos % (Auto) 3.1, Baso % (Auto) 0.5, Immature Gran # (Auto) 0.0, Neut # (Auto) 7.4 H, Lymph # (Auto) 2.1, [place] # (Auto) 0.9, Eos # (Auto) 0.3, Baso # (Auto) 0.1 ASSESSMENT: Please see below. 1. Acute UTI 2. Acute dehydration 3. Smoker 4. History of drug abuse PLAN: 1. Advised not to go outside and smoke 2. Anticipate discharge home tomorrow 3. We will make a followup with Yane Marinelli at [facility] and coordination of the patient's care discussed in the presence of Magnetic Testing Technician and nurse. SCRIBED BY: TESS DYE Customer Relations Assistant scribed while in presence of service performed by Dr. Pleitez/Rosa Maria De Anda APRN on 12/09/18 ([id number])
[2018-12-09] MEDS: FIORICET PO PRN ×3 (10:03→19:50)
--- NOTE | 2018-12-09 11:18 | HP ---
DATE OF SERVICE: 12/06/18 REASON FOR HOSPITALIZATION: Fever and chills with evidence of UTI. HISTORY OF PRESENT ILLNESS: 38-year-old white female came to the emergency room with complaint of having fever and chills with less in 24 hours duration. The patient has history of sepsis [facility], was hospitalized one month ago, was treated with IV antibiotics. The patient also had another UTI in 2017 where stent in the kidney especially ureter was placed by Dr. Rios and she was in the hospital for four days. The patient says that she has similar chills. The appetite is not that good for the past 12 to 24 hours. She denies any vomiting. PAST MEDICAL/SURGICAL HISTORY: The patient has history of nephrolithiasis, bilateral, nonobstructive for several years with history of urinary tract infection times three in the past three years. The patient's primary care is Yane Marinelli. REVIEW OF SYSTEMS: CONSTITUTIONAL: Positive for fatigue, weakness, fever and chills. No night sweats. No malaise, lethargy. HEENT: Eyes: No visual changes. No eye pain. No eye discharge. ENT: No runny nose. No epistaxis. No sinus pain. No sore throat. No odynophagia. No ear pain. No congestion. RESPIRATORY: No cough, no congestion. No hemoptysis. No shortness of breath. CARDIOVASCULAR: No angina symptoms. No CHF symptoms. No atypical chest pain for CAD. No palpitations. No PND. No orthopnea. GASTROINTESTINAL: Appetite is not that good. No abdominal pain. No nausea or vomiting. No diarrhea or constipation. No hematemesis. No hematochezia. GENITOURINARY: No urgency. No frequency. No dysuria. No hematuria. No obstructive symptoms. No discharge. No flank pain. No significant abnormal bleeding. MUSCULOSKELETAL: No musculoskeletal pain. No joint swelling. No arthritis. NEUROLOGICAL: No headache. No neck pain. No syncope. No seizures. No dizziness. PSYCHIATRIC: Not anxious. No depression. No suicidal thoughts. No homicidal thoughts. SKIN: No rash. No lesions. No wounds. ENDOCRINE: No unexplained weight loss. No weight gain. HEMATOLOGIC/LYMPHATIC: No anemia. No purpura. No petechiae. No prolonged or excessive bleeding. No palpable lymph nodes. PERSONAL/FAMILY/SOCIAL HISTORY: The patient is single. Heavy smoker. No drug abuse. MEDICATIONS: Suboxone/Buprenorphine/Naloxone 8 mg/2 mg one film sublingual daily ALLERGIES: NKDA PHYSICAL EXAMINATION: GENERAL: The patient is oriented to time, place and person. VITAL SIGNS: Temperature 100.6, pulse 100/min, respiratory rate 18, blood pressure 118/67, pulse ox 97% on room air. HEENT: Head normocephalic, atraumatic. Face is symmetrical. Eyes: Extraocular muscles are intact. Pupils are equal, round and reactive to light and accommodation. Sclerae nonicteric. Ears: No lesions. Nose appeared normal. Throat: No exudate or erythema. NECK: Supple. No JVP, no carotid bruit. No lymphadenopathy or thyromegaly. LUNGS: Decreased breath sounds but clear to auscultation. Percussion note normal. Chest symmetrical. HEART: S1, S2, no S3. No murmurs. No cyanosis or clubbing. No ascites. Pulses: Dorsalis pedis and posterior tibial pulses +2 bilaterally. ABDOMEN: Soft. Nontender. Bowel sounds active. No CVA tenderness. No mass felt. EXTREMITIES: No pedal edema. Full range of motion of all extremities, equal. NEUROLOGIC: No focal deficit. Cranial nerves II through XII are grossly intact. No headache, no double vision or headache. SKIN: Not dry. Intact. Turgor - normal. LYMPHATIC: No palpable lymph nodes/no lymphedema. MUSCULOSKELETAL: Normal joints with no swelling. Muscle tone is normal. LABS: Hemoglobin 12.2, hematocrit 37, WBC 14,000, normal differential. Creatinine 0.5 , BUN 8, potassium 3.9, glucose 114, GFR 121 cc/min. CT scan of the pelvis and abdomen showed nonobstructive bilateral renal calculi otherwise no acute findings. UA showed 1+ blood, 2+ esterase, positive nitrites. Lactic acid normal. WBC 14,000 with mild shift to the left. ASSESSMENT: 1. ACUTE URINARY TRACT INFECTION LIKELY PYELONEPHRITIS. 2. NONOBSTRUCTIVE BILATERAL RENAL CALCULI. 3. HISTORY OF SMOKING ON SUBOXONE. 4. HISTORY OF DRUG ABUSE. PLAN: 1. Will give Toradol 30 mg IV for patient's mild headache she has and generalized aches. 2. IV Rocephin and Azactam. 3. IV fluids. Advised to drink a lot of liquids. 4. Finish the sepsis workup. Some of the reports are pending. CONDIITION: Stable. TIME SPENT: More than 70 minutes. MTDD
--- NOTE | 2018-12-09 11:20 | PN ---
DATE OF SERVICE: 12/07/18 SUBJECTIVE: The patient had been running a low grade fever this morning. The patient was seen and examined with nurse practitioner. The patient otherwise stable, feeling better. WBC count is 30,000. The patient is on Rocephin and Azactam. CONDITION: Stable. TIME SPENT: More than 30 minutes. Plan and coordination of the patient's care discussed in the presence of nurse. KIESHA
--- NOTE | 2018-12-09 11:23 | PN ---
DATE OF SERVICE: 12/08/18 SUBJECTIVE: The patient was seen and examined with the nurse practitioner. The patient is practically afebrile. CVS - heart is stable. Condition is improved. The patient is continued on antibiotics. TIME SPENT: More than 30 minutes. Plan and coordination of the patient's care discussed in the presence of nurse. KIESHA
[2018-12-09] MEDS ORDERED: NON-FORMULARY MEDICATION (Nicotine Polacrilex [Nicotine Lozenge] 4 MG) PO PRN (12:23)
[2018-12-09] MEDS ORDERED: MYLANTA SUSP PO PRN (15:29)
[2018-12-09] MEDS: MYLICON PO PRN (15:54)
[2018-12-10 05:34] VITALS: TEMP 98.5
[2018-12-10] MEDS: FIORICET PO PRN ×2 (05:47→08:56)
[2018-12-10] MEDS ORDERED: ROCEPHIN 1 GM/50 ML D5W 1 GM in PREMIX 50 ML D5W 1 BAG IV SCH (06:00)
[2018-12-10] MEDS ORDERED: PROTONIX PO SCH (06:30)
[2018-12-10] MEDS ORDERED: DULCOLAX RC STA (08:25)
[2018-12-10] MEDS ORDERED: CITRATE OF MAGNESIA PO STA (08:26)
[2018-12-10] MEDS: BUPRENORPHINE HCL SL SCH (08:27)
[2018-12-10] MEDS: [UNRECOGNIZED DRUG - OTHER] SL SCH (08:27)
[2018-12-10] MEDS: NALOXONE HCL SL SCH (08:27)
[2018-12-10] MEDS: COLACE PO SCH (08:49)
--- NOTE | 2018-12-10 09:26 | PCM.PROG ---
Attending Provider: [facility]ING PROVID[facility]: [facility] This patient is seen with Rosa Maria De Anda, Nurse Practitioner. DATE OF SERVICE: 12/10/18 SUBJECTIVE: This 38 year old WHITE/ F was hospitalized 12/06/18. The patient is resting comfortably. No fever throughout the night. Still been going outside the room for smoking and possible other activities. She has been eating well. White count has improved. Clinically she has improve. No nausea or vomiting. REVIEW OF SYSTEMS: CONSTITUTIONAL: No night sweats. No fatigue, malaise, lethargy. No fever or chills. HEENT: Eyes: No visual changes. No eye pain. No eye discharge. ENT: No runny nose. No epistaxis. No sinus pain. No odynophagia. No congestion. RESPIRATORY: No cough, no congestion. No hemoptysis. No shortness of breath. CARDIOVASCULAR: No angina symptoms. No CHF symptoms. No atypical chest pain for CAD. No palpitations. No orthopnea.. GASTROINTESTINAL: No abdominal pain. No nausea or vomiting. Constipation. No hematemesis. No hematochezia. GENITOURINARY: No urgency. No frequency. Dysuria. No hematuria. No obstructive symptoms. No discharge. No pain. No significant abnormal bleeding. MUSCULOSKELETAL: No musculoskeletal pain; no joint swelling. NEUROLOGICAL: Awake, alert, oriented to time, place and person. No headache. No neck pain. No syncope. No seizures. No dizziness. PSYCHIATRIC: Not anxious. No depression. No suicidal thoughts. No homicidal thoughts. SKIN: No rash. No lesions. No wounds. ENDOCRINE: No unexplained weight loss. No weight gain. HEMATOLOGIC/LYMPHATIC: No anemia. No purpura. No petechiae. No prolonged or excessive bleeding. No palpable lymph nodes. PHYSICAL EXAMINATION: GENERAL: The patient is awake, alert and oriented, sitting in bed in no distress. VITAL SIGNS: Temperature 98.5 F, Pulse 58, Respiratory Rate 16, BP 93/62, Pulse Ox 98% HEENT: Head normocephalic, atraumatic. Eyes: Extraocular muscles are intact. Pupils are equal, round and reactive to light and accommodation. Ears: No lesions. Nose appeared normal. Throat: No exudate or erythema. NECK: Supple. No JVD, no carotid bruit. No lymphadenopathy or thyromegaly. LUNGS: Diminished breath sounds. Clear to auscultation. Percussion note normal. Chest symmetrical. HEART: S1, S2, no S3. No murmurs. No cyanosis or clubbing. No ascites. Pulses: Dorsalis pedis and posterior tibial pulses +1 to +2 both sides. ABDOMEN: Soft. Non-tender. Bowel sounds active. No CVA tenderness. No mass felt. No flank pain. EXTREMITIES: No edema. Full range of motion of all extremities, equal. NEUROLOGIC: No focal deficit. Cranial nerves II through XII are grossly intact. No headache, no double vision or headache. SKIN: Not dry. Intact. Turgor-normal. LYMPHATIC: No palpable lymph nodes/no lymphedema. MUSCULOSKELETAL: Normal joints with no swelling. Muscle tone is normal. LAB REVIEW: 12/10/18 05:12 12/10/18 05:12 12/10/18 05:12: Sodium 137.1, Potassium 4.12, Chloride 104.4, Carbon Dioxide 29.2, Anion Gap 7.62, BUN 7.7, Creatinine 0.60, Estimated GFR (MDRD) 112.00, BUN /Creatinine Ratio 12.83, Glucose 91.3 D, Calcium 8.92, Total Bilirubin 0.35, AST 24.1, ALT 25.5, Alkaline Phosphatase 105.7, Total Protein 6.76, Albumin 3.56 , Globulin 3.20, Albumin/Globulin Ratio 1.11 12/10/18 05:12: WBC 8.91, RBC 3.63 L, Hgb 10.3 L, Hct 31.3 L, MCV 86.2, MCH 28.4 , MCHC 32.9, RDW Coeff of Bill 14.7, Plt Count 224, Immature Gran % (Auto) 0.3, Neut % (Auto) 63.7, Lymph % (Auto) 20.9, [place] % (Auto) 11.7 H, Eos % (Auto) 2.8 , Baso % (Auto) 0.6, Immature Gran # (Auto) 0.0, Neut # (Auto) 5.7, Lymph # ( Auto) 1.9, [place] # (Auto) 1.0, Eos # (Auto) 0.3, Baso # (Auto) 0.1 ASSESSMENT: Please see below. 1. UTI, E-Coli 2. Smoker 3. History of drug abuse 4. Constipation which is chronic 5. Noncompliance of medications, lifestyle and followup. PLAN: 1. Discharge home today. 2. Keflex 500mg three times a day for 7 days 3. One bottle Mag Citrate 4. Linzess 145mcg 5. The patient has an appointment with [facility] on Thursday and appointment with Dr. Herring Urologist on the . 6. The patient has been advised numerous times to stay in the room. We offered a nicotine patch to which she stated that she is allergic. Urine drug screen was Plan and coordination of the patient's care discussed in the presence of Government Gauger and nurse. SCRIBED BY: Gorge CREWSist scribed while in presence of service performed by Dr. Pleitez/Rosa Maria De Anda APRN on 12/10/18 (04)
[2018-12-10 10:41] VITALS: BP 109/75
--- NOTE | 2018-12-10 11:42 | CM.DICTOOL ---
ADMISSION: 12/06/18 11:37 DISCHARGE: 2018 DATE OF SERVICE: 12/10/18 FINAL DIAGNOSIS UTI - E COLI HYPOTENSION KIDNEY STONES FREQUENT UTI'S SUBSTANCE ABUSE NASAL FRACTURE HEAVY SMOKER TONSILLECTOMY TUBAL LIGATION URINARY STENTS 2016, 2017 COLONOSCOPY 2018 - DR. STEELE LAST VITALS Temp Pulse Resp BP Pulse Ox 98.5 F 58 L 16 93/62 98 12/10/18 05:33 12/10/18 05:33 12/10/18 05:33 12/10/18 05:33 12/10/18 05:33 TAKE THESE MEDICATIONS AT HOME Buprenorphine Hcl/Naloxone Hcl [Suboxone 8 Mg-2 Mg Sl Film]) 1 film SL DAILY MASSIMO Last Admin: 12/10/18 08:27 Dose: Not Given Nicotine Lozenge 4 mg PO Q2H PRN PRN Reason: nicotene cessation aid ALLERGIES nicotine patch [From Not iT ] Adverse Reaction (Mild, Verified 12/07/18 10: 58) Rash DISCONTINUED MEDICATIONS NONE NEW PRESCRIPTIONS: KEFLEX 500 MG 1 CAPSULE BY MOUTH THREE TIMES A DAY FOR SEVEN DAYS MIRALAX (OVER THE COUNTER) MIX 1 CAPFUL IN 4-6 OZ OF WATER OR BEVERAGE OF CHOICE SMOKING: HEAVY SMOKER DISEASE SPECIFIC EDUCATION: UTI - E COLI KEFLEX SMOKING CESSATION FOLLOW UP APPOINTMENTS LAB REVIEW: 12/10/18 05:12 12/10/18 05:12 12/10/18 05:12: Sodium 137.1, Potassium 4.12, Chloride 104.4, Carbon Dioxide 29.2, Anion Gap 7.62, BUN 7.7, Creatinine 0.60, Estimated GFR (MDRD) 112.00, BUN /Creatinine Ratio 12.83, Glucose 91.3 D, Calcium 8.92, Total Bilirubin 0.35, AST 24.1, ALT 25.5, Alkaline Phosphatase 105.7, Total Protein 6.76, Albumin 3.56 , Globulin 3.20, Albumin/Globulin Ratio 1.11 12/10/18 05:12: WBC 8.91, RBC 3.63 L, Hgb 10.3 L, Hct 31.3 L, MCV 86.2, MCH 28.4 , MCHC 32.9, RDW Coeff of Bill 14.7, Plt Count 224, Immature Gran % (Auto) 0.3, Neut % (Auto) 63.7, Lymph % (Auto) 20.9, Schley % (Auto) 11.7 H, Eos % (Auto) 2.8 , Baso % (Auto) 0.6, Immature Gran # (Auto) 0.0, Neut # (Auto) 5.7, Lymph # ( Auto) 1.9, Schley # (Auto) 1.0, Eos # (Auto) 0.3, Baso # (Auto) 0.1 PLAN: DISCHARGE HOME TODAY DIET: REGULAR; TOLERATED, INCREASE FLUID INTAKE (WATER, NON-CAFFEINATED BEVERAGES) NO ALCOHOL STOP SMOKING ACTIVITY: PLENTY OF REST, UNTIL SEEN BY PRIMARY CARE PROVIDER ON THURSDAY IF YOU DEVELOP ANY CHILLS WITH FEVER (GREATER THAN 100), GO TO NEAREST EMERGENCY ROOM. YOU HAVE AN APPOINTMENT SCHEDULED WITH KHAI LAINEZ AT [facility] IN [place], [place] ON Thursday. PLEASE CALL TO RESCHEDULE IF UNABLE TO KEEP APPOINTMENT. [phone]. YOU HAVE AN APPOINTMENT SCHEDULED WITH DR. SCHARDER (UROLOGIST) IN [place], [place] ON . PLEASE CALL TO RESCHEDULE IF UNABLE TO KEEP APPOINTMENT . FULL CODE STATUS ALERT, ORIENTED TIMES THREE. SHE HAS REMAINED NON COMPLIANT WITH PHYSICIANS RECOMMENDATIONS AND HOSPITAL POLICY IN REGARDS TO NOT SMOKING. MS. GRIMM IS AGREEABLE WITH DISCHARGE HOME TODAY. SHE IS INDEPENDENT WITH ALL ACTIVITIES. SHE DOES NOT REQUIRE ANY ASSISTANCE DEVICES FOR AMBULATION. SHE HAS TOLERATED AMBULATING OUTSIDE (IN THE HOT TEMPERATURES) MULTIPLE TIMES THROUGHOUT THE DAY AND NIGHTTIME HOURS TO SMOKE WITHOUT ANY PROBLEMS. SHE CONTINUES TO C/O BURNING WITH URINATION. SHE DID REPORT TO NURSING STAFF SHE FINALLY HAD A LARGE FORMED BOWEL MOVEMENT PRIOR TO RECEIVING ANY ADDITIONAL MEDICATIONS THIS MORNING. HER APPETITE IS FAIR TO GOOD. NO COMPLAINTS OF NAUSEA, INDIGESTION, OR ABDOMINAL PAIN THIS MORNING. SHE DID RECEIVE FIORICET THIS MORNING FOR A HEADACHE. HYDRATION STATUS AND URINE OUTPUT ARE ADEQUATE. SKIN IS INTACT. Rayray Pleitez M.D. Rosa Maria De Anda APRN
[2018-12-10] MEDS: MYLICON PO PRN (12:08)
[2018-12-11] MEDS ORDERED: LINZESS PO SCH (08:00)
--- NOTE | 2018-12-15 14:06 | PN ---
DATE OF SERVICE: 12/09/18 SUBJECTIVE: The patient was seen and examined with Nurse Practitioner today. Condition is improving. Low grade fever 99. The patient is on Rocephin and Azactam. She has e -coli sensitive to Rocephin. The patient is up and about noncompliant, goes out to smoking. Counseling for smoking done. CONDITION: Stable. TIME SPENT: More than 30 minutes. Plan and coordination of the patient's care discussed in the presence of nurse. KIESHA
--- NOTE | 2018-12-17 11:20 | DS ---
DATE OF SERVICE: 12/10/18 FINAL DIAGNOSIS: 1. UTI - E COLI 2. HYPOTENSION 3. KIDNEY STONES 4. FREQUENT UTI'S 5. SUBSTANCE ABUSE 6. NASAL FRACTURE 7. HEAVY SMOKER 8. TONSILLECTOMY 9. TUBAL LIGATION 10.URINARY STENTS 2016, 2017 11.COLONOSCOPY 2018 - DR. STEELE LAST VITALS: Temp Pulse Resp BP Pulse Ox 98.5 F 58 L 16 93/62 98 12/10/18 05:33 12/10/18 05:33 12/10/18 05:33 12/10/18 05:12/10/18 05:33 DISCHARGE INSTRUCTIONS: DISCHARGE HOME TODAY. NO ALCOHOL. STOP SMOKING. IF YOU DEVELOP ANY CHILLS WITH FEVER (GREATER THAN 100), GO TO NEAREST EMERGENCY ROOM. YOU HAVE AN APPOINTMENT SCHEDULED WITH KHAI LAINEZ AT [facility] IN [place], [place] ON Thursday. PLEASE CALL TO RESCHEDULE IF UNABLE TO KEEP APPOINTMENT. [phone]. YOU HAVE AN APPOINTMENT SCHEDULED WITH DR. SCHRADER (UROLOGIST) IN [place], [place] ON . PLEASE CALL TO RESCHEDULE IF UNABLE TO KEEP APPOINTMENT . FULL CODE STATUS. TAKE THESE MEDICATIONS AT HOME: Buprenorphine Hcl/Naloxone Hcl [Suboxone 8 Mg-2 Mg Sl Film]) 1 film SL DAILY MASSIMO Nicotine Lozenge 4 mg PO Q2H PRN ALLERGIES: [facility] Adverse Reaction (Mild, Verified 12/07/18 10: 58) Rash DISCONTINUED MEDICATIONS: NONE NEW PRESCRIPTIONS: KEFLEX 500 MG 1 CAPSULE BY MOUTH THREE TIMES A DAY FOR SEVEN DAYS MIRALAX (OVER THE COUNTER) MIX 1 CAPFUL IN 4-6 OZ OF WATER OR BEVERAGE OF CHOICE SMOKING: HEAVY SMOKER DISEASE SPECIFIC EDUCATION: UTI - E COLI KEFLEX SMOKING CESSATION FOLLOW UP APPOINTMENTS DIET: REGULAR; TOLERATED, INCREASE FLUID INTAKE (WATER, NON-CAFFEINATED BEVERAGES) ACTIVITY: PLENTY OF REST, UNTIL SEEN BY PRIMARY CARE PROVIDER ON THURSDAY HOSPITAL COURSE: This is a 38 year old white female who was admitted to us under hospitalist service. She presented to the emergency room with fever of 101, 3+ bacteria in her urine and complaining of left flank pain as well as nausea. CT scan was normal. The patient was admitted and did continue to have fever until yesterday up to 99 yesterday. Urine culture was positive for e-coli. When she was admitted she was started on both Rocephin and Azactam. She had 4 days of Azactam and 5 doses of Rocephin. Sensitivity was sensitive to Rocephin and Azactam. According to the patient she does have a history of UTI. She has previous seen Dr. Schrader, Urologist in [place]. She has a followup appointment with him on 12/20/18. She also has a history of substance abuse and claimed to be on Suboxone as a treatment program however she will unwilling to bring her Suboxone prescription in. We did a urine drug screen which positive for amphetamines. She did not have a known prescription for any other those. She is a very heavy smoker. The first 24 hours she was too sick and did not go outside to smoke. She was offered a nicotine patch. She stated that she was allergic. After the first 24 hours she proceeded to go and in out numerous times during the day and night to smoke. She was informed that this was a nonsmoking facility as she would even go as far as to be out on the road. She was very noncompliant. WBC initially got up to 30,000 and today on day of discharge it is down to 8,000. Again she has been afebrile. She has been eating and drinking well. Up and about walking around. Initially she got Toradol with Protonix for pain. This was discontinued. She has a followup appointment with primary at [facility] next Thursday and this has been confirmed. She will be given a prescription for Keflex 500mg TID for the next 7 days. She has been instructed to in, avoid smoking and increase her fluids. If she has chills or return of fever she is instructed to go to the emergency room. There has been some questionable periods where she did have increased anxiety and agitation. It is unclear what else she was doing outside as she was known to be getting in someone's car several times. Again we have instructed that she needs to stay in where it is cool. Smoking cessation has been advised. Followup with the emergency room if new onset of chills or fever. She is discharged in stable condition. TIME SPENT: More than 60 minutes. [facility]
== END 2018-12-10 13:00 | disposition home or self-care (01) | DRG 690 ==
LOC: ED 09:34 → MEDSURG B 11:37 → EEVIPCON 11:37
PROVIDERS: ADMIT Internal Medicine; ATTEND Internal Medicine
DX: Z91.19 Patient's noncompliance with other medical treatment and regimen; R53.1 Weakness; N39.0 Urinary tract infection, site not specified; E86.0 Dehydration; F19.10 Other psychoactive substance abuse, uncomplicated; R50.9 Fever, unspecified; A49.8 Other bacterial infections of unspecified site; I95.9 Hypotension, unspecified; R63.0 Anorexia; R35.0 Frequency of micturition; Z72.0 Tobacco use; R30.9 Painful micturition, unspecified; R10.30 Lower abdominal pain, unspecified; R53.81 Other malaise; N20.0 Calculus of kidney; Z87.440 Personal history of urinary (tract) infections